=== PATIENT | female | born 1985 | race Caucasian/White ===

== ENCOUNTER 2020-01-29 14:59 | Emergency (ER) | payer BC ==
--- NOTE | 2020-01-29 15:37 | EDM.PDOC ---
ED HPI GENERAL MEDICAL PROBLEM - General Chief Complaint: General Stated Complaint: FLU SYMPTOMS Time Seen by Provider: 01/29/20 15:36 Source of Information: Reports: Patient History Limitations: Reports: No Limitations - History of Present Illness INITIAL COMMENTS - FREE TEXT/NARRATIVE: HISTORY AND PHYSICAL: History of present illness: Patient is a 34-year-old female presents to the ED with complaint of flu like symptoms. Patient states she has had fevers, cough, nausea, vomiting, diarrhea, sore throat x 3 days. She denies chest pain, shortness of breath abdominal pain. She reports history of epilepsy and smokes marijuana for this but otherwise denies significant past medical history. Review of systems: As per history of present illness and below otherwise all systems reviewed and negative. Past medical history: As per history of present illness and as reviewed below otherwise noncontributory. Surgical history: As per history of present illness and as reviewed below otherwise noncontributory. Social history: No reported history of drug or alcohol abuse. Family history: As per history of present illness and as reviewed below otherwise noncontributory. Physical exam: General: Patient sitting comfortably in no acute distress and nontoxic appearing HEENT: Atraumatic, normocephalic, pupils reactive, negative for conjunctival pallor or scleral icterus, mucous membranes moist, throat clear, neck supple, nontender, trachea midline. No meningeal signs. Lungs: Clear to auscultation, breath sounds equal bilaterally, chest nontender. Heart: S1S2, regular, negative for clicks, rubs, or overt murmur. Abdomen: Soft, nondistended, nontender. Negative for masses or hepatosplenomegaly. Negative for costovertebral tenderness. No rigidity, rebound , guarding. Pelvis: Stable nontender. Genitourinary: Deferred. Rectal: Deferred. Extremities: Atraumatic, negative for cords or calf pain. Neurovascular unremarkable. Neuro: Awake, alert, oriented. Cranial nerves II through XII unremarkable. Cerebellum unremarkable. Motor and sensory unremarkable throughout. Exam nonfocal. Notes: Diagnostics: Influenza Therapeutics: none Prescriptions: none Impression: Influenza B Plan: 1. Drink plenty of fluids and alternate tylenol and motrin as discussed. 2. Follow up with primary care provider 3. Return to ED as needed as discussed Definitive disposition and diagnosis as appropriate pending reevaluation and review of above. Middle Abdomen Pain Score (Numeric/FACES): 5 - Related Data Allergies Allergy/AdvReac Type Severity Reaction Status Date / Time cefaclor Allergy Other Verified 01/29/20 15:36 Home Meds: Home Meds . [No Known Home Meds] 01/29/20 [History] ED ROS GENERAL - Review of Systems Review Of Systems: Comprehensive ROS is negative, except as noted in HPI. ED EXAM, GENERAL - Physical Exam Exam: See Below (see dictation) Course - Vital Signs Last Recorded V/S: Last Vital Signs Temp 97.7 F 01/29/20 15:31 Pulse 89 01/29/20 15:31 Resp 18 01/29/20 15:31 BP 120/71 01/29/20 15:31 Pulse Ox 98 01/29/20 15:31 Departure - Departure Time of Disposition: 16:00 Disposition: Home, Self-Care 01 Condition: Good Clinical Impression: Influenza B - Discharge Information Referrals: PCP,None [Primary Care Provider] - Forms: ED Department Discharge Additional Instructions: The following information is given to patients seen in the emergency department who are being discharged to home. This information is to outline your options for follow-up care. We provide all patients seen in our emergency department with a follow-up referral. The need for follow-up, as well as the timing and circumstances, are variable depending upon the specifics of your emergency department visit. If you don't have a primary care physician on staff, we will provide you with a referral. We always advise you to contact your personal physician following an emergency department visit to inform them of the circumstance of the visit and for follow-up with them and/or the need for any referrals to a consulting specialist. The emergency department will also refer you to a specialist when appropriate. This referral assures that you have the opportunity for follow-up care with a specialist. All of these measure are taken in an effort to provide you with optimal care, which includes your follow-up. Under all circumstances we always encourage you to contact your private physician who remains a resource for coordinating your care. When calling for follow-up care, please make the office aware that this follow-up is from your recent emergency room visit. If for any reason you are refused follow-up, please contact the [facility] Emergency Department at and asked to speak to the emergency department charge nurse. SAMU[facility] [address] [place] [address] [facility] [address] [place] [id number] 1. Drink plenty of fluids and alternate tylenol and motrin as discussed. 2. Follow up with primary care provider 3. Return to ED as needed as discussed Sepsis Event Note - Evaluation Sepsis Screening Result: No Definite Risk - Focused Exam Vital Signs: Vital Signs Temp Pulse Resp BP Pulse Ox 01/29/20 15:31 97.7 F 89 18 120/71 98 Date Exam was Performed: 01/29/20 Time Exam was Performed: 15:59
== END 2020-01-29 16:20 | disposition home or self-care (01) ==
LOC: MW.ED 14:59
DX: J10.1 Influenza due to other identified influenza virus with other respiratory manifestations (principal); Z88.1 Allergy status to other antibiotic agents
CPT/HCPCS: 87804; 99282; 99283

== ENCOUNTER 2021-11-11 17:10 | Emergency (ER) | payer OTHER ==
--- NOTE | 2021-11-11 18:03 | PCM.EKG ---
#1 Interpretation EKG Date: 11/11/21 Time: 17:55 Rhythm: NSR Rate (Beats/Min): 80 [place]: Normal P-Wave: Present QRS: Normal ST-T: Normal QT: Normal Comparison: NA - No Prior EKG EKG Interpretation Comments: Sinus Rhythm
[2021-11-11 18:51] LABS: BLOOD UREA NITROGEN,BUN 11 mg/dL (7.0-18.0); CARBON DIOXIDE,CO2 28.8 mmol/L (21.0-32.0); CHLORIDE,CL 104 mmol/L (98-107); GLUCOSE RANDOM 95 mg/dL (74-106); POTASSIUM,K 3.8 mmol/L (3.5-5.1); SODIUM,NA 138 mmol/L (136-145)
[2021-11-11] MEDS ORDERED: LORazepam 2 MG/ML SDV ONE (19:20)
[2021-11-11] MEDS ORDERED: levETIRAcetam 4,500 MG in Dextrose 5% in Water 100 ML IV STA ×2 (19:26)
[2021-11-11] MEDS ORDERED: LORazepam 2 MG/ML SDV IV ONE (19:27)
--- NOTE | 2021-11-11 20:37 | CT ---
INDICATION: Seizure. TECHNIQUE: Head CT without intravenous contrast. Coronal and sagittal reformats. COMPARISON: None available. FINDINGS: No intracranial hemorrhage, extra-axial collection, or evidence of acute cortical infarction. Age-appropriate ventricles and sulci. No mass effect or midline shift. The cranium and orbits appear intact. Paranasal sinuses demonstrate minimal maxillary sinus mucosal thickening bilaterally. The mastoid air cells are clear. IMPRESSION: No acute intracranial findings. Dictated by Poli Hernandez MD @ 11/11/2021 8:35:03 PM Please note that all CT scans at this facility use dose modulation, iterative reconstruction, and/or weight-based dosing when appropriate to reduce radiation dose to as low as reasonably achievable. Dictated by: Poli Hernandez MD @ 11/11/2021 20:35:07 (Electronically Signed)
--- NOTE | 2021-11-11 20:44 | EDM.PDOC ---
<Adolph Early - Last Filed: 11/12/21 00:07> ED HPI GENERAL MEDICAL PROBLEM - General Chief Complaint: Neurological Problem Stated Complaint: SEIZURE Time Seen by Provider: 11/11/21 17:34 - Related Data Allergies Allergy/AdvReac Type Severity Reaction Status Date / Time cefaclor Allergy Other Verified 11/11/21 17:11 Home Meds: Home Meds levETIRAcetam [Keppra] 500 mg PO BID #60 tab 11/11/21 [Rx] Departure - Departure Time of Disposition: 00:07 Disposition: Home, Self-Care 01 Condition: Good Clinical Impression: Seizure, Nonadherence to medication, Seizure disorder - Discharge Information Prescriptions: levETIRAcetam [Keppra] 500 mg PO BID #60 tab Instructions: Epilepsy, [id number] Referrals: Quincy Galvan MD [Primary Care Provider] - Forms: ED Department Discharge Additional Instructions: Your prescription went to [facility] [address] [place] [address], [address] [place] [address] [facility] [address] [place] [address] [address] The following information is given to patients seen in the emergency department who are being discharged to home. This information is to outline your options for follow-up care. We provide all patients seen in our emergency department with a follow-up referral. The need for follow-up, as well as the timing and circumstances, are variable depending upon the specifics of your emergency department visit. If you don't have a primary care physician on staff, we will provide you with a referral. We always advise you to contact your personal physician following an emergency department visit to inform them of the circumstance of the visit and for follow-up with them and/or the need for any referrals to a consulting specialist. The emergency department will also refer you to a specialist when appropriate. This referral assures that you have the opportunity for follow-up care with a specialist. All of these measure are taken in an effort to provide you with optimal care, which includes your follow-up. Under all circumstances we always encourage you to contact your private physician who remains a resource for coordinating your care. When calling for follow-up care, please make the office aware that this follow-up is from your recent emergency room visit. If for any reason you are refused follow-up, please contact the [facility] Emergency Department at and asked to speak to the emergency department charge nurse. <Tonja Sandy - Last Filed: 11/15/21 10:15> ED HPI GENERAL MEDICAL PROBLEM - General Source of Information: Reports: Patient History Limitations: Reports: No Limitations - History of Present Illness INITIAL COMMENTS - FREE TEXT/NARRATIVE: HISTORY AND PHYSICAL: History of present illness: Patient is a 36-year-old female, with a known seizure disorder, who presents emergency room today with concern of a seizure that occurred prior to travel to the emergency room. Patient states that she did bite her bottom lip. Patient states that she does have a history of grand mal seizures and does follow with neurology, Dr. Phipps. Patient states that she typically has 1-2 seizures a year and does not have them frequently. Patient states that she is using marijuana for seizure control and states that she has no longer taking her seizure medication. Patient states that she did not like the side effect of her seizure medication so stopped it quite some time ago. Patient states that she does not believe to hit her head and states other than her lip, she has no pain at this time. Patient denies fever, chills, chest pain, shortness of breath, or cough. Denies headache, neck stiff ness, change in vision, syncope, or near syncope. Denies nausea, vomiting, abdominal pain, diarrhea, constipation, or dysuria. Has not noted any blood in urine or stool. Patient has been eating and drinking appropriately. Review of systems: As per history of present illness and below otherwise all systems reviewed and negative. Past medical history: As per history of present illness and as reviewed below otherwise noncontributory. Surgical history: As per history of present illness and as reviewed below otherwise noncontributory. Social history: See social history for further information Family history: As per history of present illness and as reviewed below otherwise noncontributory. Physical exam: General: Patient is alert, oriented, and in no acute distress. Patient laying comfortably on exam table. Vitals stable and reviewed by me. HEENT: Atraumatic, normocephalic, pupils equal and reactive bilaterally, negative for conjunctival pallor or scleral icterus, mucous membranes moist, throat clear, neck supple, nontender, trachea midline. No drooling or trismus noted. No meningeal signs. No hot potato voice noted. Lungs: Clear to auscultation, breath sounds equal bilaterally, chest nontender. Heart: S1S2, regular rate and rhythm without overt murmur Abdomen: Soft, nondistended, nontender. Negative for masses or hepatosplenomegaly. Negative for costovertebral tenderness. Pelvis: Stable nontender. Genitourinary: Deferred. Rectal: Deferred. Skin: Intact, warm, dry. No lesions or rashes noted. Extremities: Atraumatic, negative for cords or calf pain. Neurovascular unremarkable. Neuro: Awake, alert, oriented. Cranial nerves II through XII unremarkable. Cerebellum unremarkable. Motor and sensory unremarkable throughout. Exam nonfocal. Medical Decision Making: Patient is a 36-year-old female with a known seizure disorder who presents emergency room today with concern of a seizure that occurred just prior to arrival to the emergency room. Upon arrival to the ED, patient is somewhat confused but is answering questions appropriately. With further conversation with patient, it does appear that she is no longer taking her seizure medications and is using marijuana medicinally for this. Patient does have a bite aries on her bottom inner lip without open laceration or bleeding, exam is otherwise unremarkable. Will obtain basic lab work and monitor patient. See Dr. García's dictation for specific EKG interpretation. Otherwise, normal sinus rhythm without STEMI. CBC mild derangements are unremarkable. CMP mild derangements are unremarkable. hCG is negative. Patient upon discharge did have a grand mal witnessed seizure that lasted approximately 20 to 30 seconds. Patient given 2 mg of Ativan IV and giving a loading dose of Keppra. Will also obtain a head CT scan given the increased frequency of her seizure activity and reassess for additional seizures. Following the Ativan, patient is sedated and sleeping on exam. She does not have any additional seizures throughout my observation., However, she is too sedated at this time for discharge. Dr. Early has assumed care of patient and will follow remaining observation period. Diagnostics: CBC, CMP, hCG, head CT, EKG Therapeutics: Ativan, Keppra Prescription: Impression: Seizure with known seizure disorder Medication noncompliance Plan: Definitive disposition and diagnosis as appropriate pending reevaluation and review of above. Past Medical History - Past Health History Medical/Surgical History: Denies Medical/Surgical History Neurological History: Reports: Other (See Below) Other Neuro History: Epilepsy - Infectious Disease History Infectious Disease History: Reports: Chicken Pox, Mononucleosis - Past Surgical History Neurological Surgical History: Reports: None Social & Family History - Family History Family Medical History: No Pertinent Family History - Caffeine Use Caffeine Use: Reports: Coffee, Soda - Recreational Drug Use Recreational Drug Use: No ED ROS GENERAL - Review of Systems Review Of Systems: Comprehensive ROS is negative, except as noted in HPI. ED EXAM, GENERAL - Physical Exam Exam: See Below (see dictation) Course - Vital Signs Last Recorded V/S: Last Vital Signs Temp 97.9 F 11/11/21 17:12 Pulse 68 11/12/21 00:30 Resp 18 11/12/21 00:30 BP 90/53 L 11/12/21 00:30 Pulse Ox 96 11/12/21 00:30 - Orders/Labs/Meds Labs: Laboratory Tests 11/11/21 11/11/21 11/11/21 Range/Units 18:18 18:18 18:18 WBC 5.32 (4.0-11.0) K/uL RBC 3.94 L (4.30-5.90) M/uL Hgb 12.7 (12.0-16.0) g/dL Hct 37.8 (36.0-46.0) % MCV 95.9 (80.0-98.0) fL MCH 32.2 H (27.0-32.0) pg MCHC 33.6 (31.0-37.0) g/dL RDW Std Deviation 47.2 (28.0-62.0) fl RDW Coeff of Masood 13 (11.0-15.0) % Plt Count 190 (150-400) K/uL MPV 9.30 (7.40-12.00) fL Neut % (Auto) 56.7 (48.0-80.0) % Lymph % (Auto) 32.0 (16.0-40.0) % [place] % (Auto) 8.3 (0.0-15.0) % Eos % (Auto) 2.8 (0.0-7.0) % Baso % (Auto) 0.2 (0.0-1.5) % Neut # (Auto) 3.0 (1.4-5.7) K/uL Lymph # (Auto) 1.7 (0.6-2.4) K/uL [place] # (Auto) 0.4 (0.0-0.8) K/uL Eos # (Auto) 0.2 (0.0-0.7) K/uL Baso # (Auto) 0.0 (0.0-0.1) K/uL Nucleated RBC % 0.0 /100WBC Nucleated RBCs # 0 K/uL Sodium 138 (136-145) mmol/L Potassium 3.8 (3.5-5.1) mmol/L Chloride 104 (98-107) mmol/L Carbon Dioxide 28.8 (21.0-32.0) mmol/L BUN 11 (7.0-18.0) mg/dL Creatinine 0.8 (0.6-1.0) mg/dL Est Cr Clr Drug Dosing TNP Estimated GFR (MDRD) > 60.0 ml/min Glucose 95 (74-106) mg/dL Calcium 8.6 (8.5-10.1) mg/dL Magnesium 2.0 (1.8-2.4) mg/dL Total Bilirubin 0.2 (0.2-1.0) mg/dL AST 12 L (15-37) IU/L ALT 16 (14-63) IU/L Alkaline Phosphatase 56 (46-116) U/L Total Protein 7.1 (6.4-8.2) g/dL Albumin 3.6 (3.4-5.0) g/dL Globulin 3.5 (2.6-4.0) g/dL Albumin/Globulin Ratio 1.0 (0.9-1.6) HCG, Qual NEGATIVE (NEG) Meds: Medications Discontinued Medications Generic Name Dose Route Start Last Admin Trade Name Freq PRN Reason Stop Dose Admin Levetiracetam 4,500 mg/ 145 mls @ 460 mls/hr 11/11/21 19:26 11/11/21 19:56 Dextrose/Water IV 11/11/21 19:44 460 mls/hr NOW STA Administration Lorazepam Confirm 11/11/21 19:20 11/11/21 19:31 Lorazepam 2 Mg/Ml Sdv Administered 11/11/21 19:21 Not Given Dose 2 mg .ROUTE .STK-MED ONE Lorazepam 2 mg 11/11/21 19:27 11/11/21 19:29 Lorazepam 2 Mg/Ml Sdv IV 11/11/21 19:28 2 mg ONETIME ONE Administration Sepsis Event Note (ED) - Evaluation Sepsis Screening Result: No Definite Risk
== END 2021-11-12 00:36 | disposition home or self-care (01) ==
LOC: MW.ED 17:10
DX: G40.909 Epilepsy, unspecified, not intractable, without status epilepticus (principal); Z79.899 Other long term (current) drug therapy; Z88.8 Allergy status to other drugs, medicaments and biological substances
CPT/HCPCS: 36415; 70450; 80053; 83735; 84703; 85025; 93005; 96365; 96375; 99285; J1953; J2060

== ENCOUNTER 2022-05-30 11:30 | Emergency (ER) | payer BC, OTHER ==
[2022-05-30] MEDS ORDERED: Lactated Ringers 1,000 ML IV ONE (12:04)
[2022-05-30] MEDS ORDERED: Metoclopramide 10 MG/2 ML SDV IVPUSH ONE (12:04)
[2022-05-30] MEDS ORDERED: diphenhydrAMINE 50 MG/ML SDV IVPUSH ONE (12:04)
[2022-05-30] MEDS ORDERED: Ketorolac 30 MG/ML SDV IVPUSH ONE (12:51)
== END 2022-05-30 13:30 | disposition home or self-care (01) ==
LOC: MW.ED 11:30
DX: G43.909 Migraine, unspecified, not intractable, without status migrainosus (principal); Z88.8 Allergy status to other drugs, medicaments and biological substances
CPT/HCPCS: 81025; 96374; 96375; 99283; J1200; J1885; J2765; J7120

== ENCOUNTER 2025-10-02 07:38 | Emergency (ER) | payer BC ==
[2025-10-02 08:00] LABS: BASOPHILS ABSOLUTE AUTO 0.01 K/uL (0.00-0.20); BASOPHILS PERCENT AUTO 0.2 % (0.0-1.0); EOSINOPHILS ABSOLUTE AUTO 0.06 K/uL (0.00-0.45); EOSINOPHILS PERCENT AUTO 1.2 % (0.0-6.0); IMMATURE GRAN ABSOLUTE AUTO 0.00 K/uL (0.00-0.05); IMMATURE GRAN PERCENT AUTO 0.0 % (0.0-0.4); LYMPHOCYTES ABSOLUTE AUTO 1.47 K/uL (1.00-4.80); LYMPHOCYTES PERCENT AUTO 29.6 % (24.0-44.0); MEAN PLATELET VOLUME 8.7 fL (9.4-12.3); MONOCYTES ABSOLUTE AUTO 0.38 K/uL (0.00-0.80); MONOCYTES PERCENT AUTO 7.6 % (0.0-8.0); NEUTROPHILS ABSOLUTE AUTO 3.05 K/uL (1.80-7.70); NEUTROPHILS PERCENT AUTO 61.4 % (41.0-71.0); NRBC ABSOLUTE 0.00 K/uL (0.00-0.02); NRBC PERCENT 0.0 /100WBC (0.0-0.2); PLATELET COUNT,PLT 225 K/uL (150-400); RED BLOOD CELL COUNT 4.38 M/uL (4.10-5.30); WHITE BLOOD CELL COUNT,WBC 4.97 K/uL (3.9-11.3)
[2025-10-02 08:19] LABS: APPEARANCE,URINE CLEAR; GLUCOSE,URINE NEGATIVE (NEGATIVE); OCCULT BLOOD,URINE NEGATIVE (NEGATIVE)
== END 2025-10-02 10:03 | disposition home or self-care (01) ==
LOC: MW.ED 07:38
DX: K64.9 Unspecified hemorrhoids (principal); K59.00 Constipation, unspecified; R19.5 Other fecal abnormalities; F41.9 Anxiety disorder, unspecified; Z88.1 Allergy status to other antibiotic agents; Z91.041 Radiographic dye allergy status; Z88.8 Allergy status to other drugs, medicaments and biological substances; Z79.899 Other long term (current) drug therapy
CPT/HCPCS: 36415; 74018; 81003; 81025; 85025; 85652; 86140; 99283; A9270